=== PATIENT | female | born 2000 | race African-American/Black ===

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

== ENCOUNTER 2025-04-25 22:41 | Emergency (ER) | payer OTHER, MEDICAID ==
[~2025-04-25] VITALS: Ht 162.6 cm; Wt 104.0 kg
[2025-04-25 22:59] VITALS: O2SAT 100
[2025-04-25 23:40] LABS: BASOPHILS % 0.5 % (0.0-2.0); CHLORIDE 105 mEq/L (98-107); EOSINOPHILS % 0.9 % (0.0-5.0); HEMATOCRIT. 38.8 % (36.0-48.0); HEMOGLOBIN. 13.3 g/dL (12.0-16.0); LYMPHOCYTES % 21.3 % (20.0-50.0); MEAN CORPUSCULAR HEMOGLOBIN 31.6 pg (28.0-32.0); MEAN CORPUSCULAR HGB CONC 34.4 g/dL (31.0-37.0); MEAN CORPUSCULAR VOLUME 91.9 fL (81.0-99.0); MEAN PLATELET VOLUME 7.6 fl (7.4-10.4); MONOCYTES % 2.8 % (2.0-8.0); NEUTROPHILS % 74.5 % (40.0-76.0); PLATELET 414 x1000/uL (130-400); RED BLOOD CELL COUNT 4.22 mill/uL (4.2-5.4); RED CELL DISTRIBUTION WIDTH 14.3 % (11.6-14.6); WHITE BLOOD COUNT 10.6 x1000/uL (4.5-11.0)
[2025-04-25 23:41] LABS: SODIUM 139 mEq/L (136-145)
[2025-04-25 23:42] LABS: CALCIUM 9.8 mg/dL (8.7-10.4); CARBON DIOXIDE 25 mEq/L (21-32)
[2025-04-25 23:47] LABS: GLUCOSE 117 mg/dL (70-105)
[2025-04-25 23:48] LABS: UREA NITROGEN BLOOD 9 mg/dL (9-23)
[2025-04-25 23:49] LABS: ALANINE AMINOTRANSFERASE 30 IU/L (10-49); ALBUMIN 4.6 g/dL (3.2-4.8); ASPARTATE AMINOTRANSFERASE 61 IU/L (<34); BILIRUBIN DIRECT 0.2 mg/dL (<=3.0)
[2025-04-25 23:50] LABS: BILIRUBIN TOTAL 0.5 mg/dL (0.1-1.0); PROTEIN TOTAL 7.4 g/dL (6.0-8.3)
[2025-04-26 00:20] LABS: HCG SCREEN NEGATIVE
[2025-04-26 00:21] LABS: CLARITY URINE CLEAR (CLEAR); COLOR URINE YELLOW (YELLOW); GLUCOSE URINE NEGATIVE (NEGATIVE); KETONES URINE 2+ (NEGATIVE); LEUKOCYTE ESTERASE URINE NEGATIVE (NEGATIVE); NITRITE URINE NEGATIVE (NEGATIVE); OCCULT BLOOD URINE NEGATIVE (NEGATIVE); PROTEIN URINE NEGATIVE (NEGATIVE); SPECIFIC GRAVITY URINE 1.026 (1.005-1.030)
[2025-04-26] MEDS: ONDANSETRON HCL 4MG/2ML INJ IM ONE (00:57)
[2025-04-26] MEDS: HYDROCODONE/ACETAMINOPHEN 5/325MG TABLET PO ONE (00:57)
[2025-04-26] MEDS: POTASSIUM CHLORIDE 20MEQ/PACKET PO ONE (01:42)
[2025-04-26] MEDS: DIPHENHYDRAMINE 50MG/ML VIAL IM ONE (03:27)
[2025-04-26] MEDS: METHYLPREDNISOLONE SOD SUCC 125MG/2ML (ACT-O-VIAL) IV ONE (04:30)
[2025-04-26] MEDS ORDERED: P50 MT (04:38)
[2025-04-26] MEDS ORDERED: DIPH25CA83 MT (04:38)
[2025-04-26] MEDS: METHYLPREDNISOLONE SOD SUCC 125MG/2ML (ACT-O-VIAL) IV NR (06:40)
[2025-04-26] MEDS: SODIUM CHLORIDE 0.9% 1,000 ML IV ONE (06:40)
[2025-04-26 07:00] VITALS: BP 122/82; PULSE 86; RESP 16; TEMP 36.7; O2SAT 100
== END 2025-04-26 07:08 | disposition home or self-care (01) ==
LOC: ER 22:41
DX: T78.49XA Other allergy, initial encounter (principal); R10.11 Right upper quadrant pain; K82.8 Other specified diseases of gallbladder; E87.6 Hypokalemia; F12.90 Cannabis use, unspecified, uncomplicated; Z88.8 Allergy status to other drugs, medicaments and biological substances; X58.XXXA Exposure to other specified factors, initial encounter
CPT/HCPCS: 99285; 76700; 80076; 80048; 84703; 83690; 85025; 36415; 74176; 96374; 96361; 81003; 81025; 96372; J2919; J1200; J2405; J7030